=== PATIENT | male | born 1990 | race Caucasian/White ===

== ENCOUNTER 2021-09-22 05:29 | Emergency (ER) | payer BC ==
[~2021-09-22] VITALS: Ht 175.3 cm; Wt 108.9 kg
[~2021-09-22 05:29] MED LIST: CODACE30 PO; PENVK500 PO; PROM25 PO
== END 2021-09-22 07:15 | disposition home or self-care (01) ==
LOC: ER 05:29
DX: U07.1 COVID-19 (principal); F10.10 Alcohol abuse, uncomplicated; F17.200 Nicotine dependence, unspecified, uncomplicated
CPT/HCPCS: 99283